=== PATIENT | female | born 1955 | race African-American/Black ===

== ENCOUNTER 2017-01-18 18:01 | Emergency (ER) | payer OTHER ==
--- NOTE | ~2017-01-18 | CR63 ---
[facility] A Service of [facility] & [facility] RADIOLOGY TEXT RESULTS PATIENT: MAGGIE SANTIZO LOCATION: CFTX : 55 UNIT #: [id number] AGE: [address]: Dara Brannon SEX: F ORDER DR: [id number] [facility] [address] [place], [place] [address] [id number] E MR#: [id number] Acc #: [id number] NAME: MAGGIE SANTIZO : 1955 SEX: F STUDY DATE/TIME: 01/18/2017 17:51 UNIT: [facility] ROOM: STUDY DESCRIPTION: CR Chest 2 View Attending Physician: Dara Brannon Pa-C Ordering Physician: Dara Branonn Pa-C Primary Care Physician: Brent Donato M.D. MEDICAL IMAGING REPORT This report is preliminary unless electronic signature is present EXAM Chest x-ray 01/18/2017 INDICATIONS Cough and congestion for 2 days. History of allergies. PA and lateral views of the chest are compared with 04/07/2013. FINDINGS The lungs are clear except for granuloma in the right middle lobe. No pneumothorax is seen. Heart size is normal. Patient has a prominent ascending aorta. IMPRESSION No active disease in the chest. Patient has a prominent ascending aorta. Dictated by... Contreras Monaco Jr., M.D. THIS IS AN ELECTRONICALLY VERIFIED REPORT Contreras Monaco Jr., M.D. at 01/18/2017 6:17 PM RAZ/aravind TD: 01/18/2017 18:15 JOB #: [id number] MEDICAL IMAGING REPORT Page 1 of 1 COPY
[~2017-01-18 18:01] MED LIST: ACETAMINOPHEN PO; ADALATCC; ALBUTEROL17 GM INH; AMOXICILLIN PO; ASPIRIN PO; ASTEPRO; ATARAX PO; BENADRYL PO; BENZONATATE PO; BUSPAR; CERTAGEN PO; CLARITIN10 MG PO; COD LIVER OIL1 CAP PO; COLACE PO; COZAAR PO; CRESTOR PO; DIFLUCAN PO; E-MYCIN250 MG PO; FLEXERIL10 MG PO; FLONASE16 GM; GLUCOPHAGE XR500 MG PO; GLUCOTROL PO; GUAIFEN-P-EPHE480 ML PO; IBUPROFEN PO; IRON PILL PO; JANUMET; JANUMET PO; KCL PO; KEFLEX PO; LAMISIL TOP; LEVAQUIN PO; LISINOPRIL PO; MAXZIDE 75/50 T1 TAB PO; MEDROL PO; MEVACOR PO; MINERALS PO; MUCINEX DM1 TAB.SR . PO; MULTI-VITAMIN1 TAB PO; MULTIVITAMINS W1 TAB PO; MYLANTA400 MG PO; NAPROSYN500 MG PO; NEXIUM PO; NORCO 5/325 TAB1 TAB PO; ORUDIS75 M1 PO; PATIENT'S PHARMACY; PERCOCET 5-3251 TAB PO; PRILOSEC PO; QVAR 80MCG INH; ROBITUSSIN ALL118 ML PO; TESSALON200 MG PO; UNK HTN MED PO; VISTARIL PO; VITAMIN PO; ZANTAC; ZITHROMAX PO; ZOFRAN PO; ZYRTEC PO; ZYVOX600 MG PO; [UNRECOGNIZED DRUG - REMARK]; [UNRECOGNIZED DRUG - REMARK]
== END 2017-01-18 18:15 | disposition home or self-care (01) ==
LOC: CFTX 18:01
DX: J20.9 Acute bronchitis, unspecified (principal); E11.9 Type 2 diabetes mellitus without complications; I10 Essential (primary) hypertension; E78.5 Hyperlipidemia, unspecified; Z88.1 Allergy status to other antibiotic agents; Z90.710 Acquired absence of both cervix and uterus; Z98.890 Other specified postprocedural states
CPT/HCPCS: 71020; 99283

== ENCOUNTER 2017-01-22 16:58 | Emergency (ER) | payer OTHER | END 2017-01-22 17:40 | disposition home or self-care (01) | LOC: CFTX 16:58 | DX: J40 Bronchitis, not specified as acute or chronic (principal); E11.9 Type 2 diabetes mellitus without complications; I10 Essential (primary) hypertension; Z90.710 Acquired absence of both cervix and uterus; Z88.2 Allergy status to sulfonamides | CPT/HCPCS: 94640; 99283 ==

== ENCOUNTER 2017-05-30 17:43 | Emergency (ER) | payer OTHER ==
[~2017-05-30] VITALS: Ht 157.5 cm; Wt 89.8 kg
== END 2017-05-30 18:13 | disposition home or self-care (01) ==
LOC: CED 17:43 → CFTX 17:43
DX: S40.862A Insect bite (nonvenomous) of left upper arm, initial encounter (principal); I10 Essential (primary) hypertension; E78.5 Hyperlipidemia, unspecified; E11.9 Type 2 diabetes mellitus without complications; Z90.710 Acquired absence of both cervix and uterus; Z88.2 Allergy status to sulfonamides; W57.XXXA Bitten or stung by nonvenomous insect and other nonvenomous arthropods, initial encounter; Y92.9 Unspecified place or not applicable
CPT/HCPCS: 99282